=== PATIENT | female | born 1970 | race African-American/Black ===

== ENCOUNTER 2023-11-29 18:08 | Emergency (ER) | payer MEDICAID ==
[~2023-11-29] VITALS: Ht 165.1 cm; Wt 90.0 kg
[2023-11-29 18:16] VITALS: TEMP 98.4; O2SAT 99
[2023-11-29] MEDS ORDERED: KETOROLAC 30MG/ML VIAL IV ONE (20:30)
[2023-11-29] MEDS ORDERED: LIDO1ADH7 TP (20:58)
[2023-11-29] MEDS ORDERED: NAPR500T7 MT (20:58)
[2023-11-29 21:30] VITALS: BP 188/110; PULSE 85; RESP 18
[2023-11-29] MEDS: KETOROLAC 30MG/ML VIAL IM ONE (21:30)
== END 2023-11-29 23:49 | disposition home or self-care (01) ==
LOC: ER 18:08
DX: M54.2 Cervicalgia (principal); M54.50 Low back pain, unspecified; I10 Essential (primary) hypertension; Z88.0 Allergy status to penicillin; V49.49XA Driver injured in collision with other motor vehicles in traffic accident, initial encounter; Y93.89 Activity, other specified; Y92.89 Other specified places as the place of occurrence of the external cause; Y99.8 Other external cause status
CPT/HCPCS: 99283; 96372; J1885